=== PATIENT | female | born 1960 | race Caucasian/White ===

== ENCOUNTER → 2017-12-03 | Outpatient (CLI) | payer MEDICAID | LOC: BMCIMAGING 12:05 | PROVIDERS: ATTEND Internal Medicine Rheumatology | DX: M12.821 Other specific arthropathies, not elsewhere classified, right elbow (principal); M12.822 Other specific arthropathies, not elsewhere classified, left elbow ==

== ENCOUNTER → 2018-06-10 | Outpatient (CLI) | payer MEDICAID | LOC: BMCIMAGING 14:10 | PROVIDERS: ATTEND Internal Medicine Rheumatology | DX: M62.830 Muscle spasm of back (principal); M47.892 Other spondylosis, cervical region; M48.02 Spinal stenosis, cervical region; M43.12 Spondylolisthesis, cervical region ==